=== PATIENT | male | born 1960 | race American Indian/Alaskan Native ===

== ENCOUNTER 2017-09-22 10:56 | Emergency (ER) | payer MEDICAID ==
[2017-09-22] MEDS ORDERED: ATIVAN ONE (11:04)
[2017-09-22] MEDS ORDERED: ATIVAN IV ONE ×2 (11:11→15:30)
[2017-09-22] MEDS ORDERED: NACL 0.9% 1000 ML 1,000 ML IV ONE ×2 (11:18→15:01)
[2017-09-22 11:54] LABS: Basophils % (Auto) 0.2 % (0.0-1.8); Eosinophils % (Auto) 0.5 % (0.0-4.3); Hematocrit 38.7 % (35.5-45.6); Hemoglobin 13.1 gm/dl (11.8-15.2); Lymphocytes # (Auto) 2.1 K/mm3 (1.2-5.4); Lymphocytes % (Auto) 32.9 % (13.4-35.0); Mean Corpuscular HGB Conc 34 % (32-34); Mean Corpuscular Hemoglobin 33 pg (28-32); Mean Corpuscular Volume 97 fl (84-94); Monocytes # (Auto) 0.5 K/mm3 (0.0-0.8); Monocytes % (Auto) 7.3 % (0.0-7.3); Platelet Count 147 K/mm3 (140-440); Red Cell Distribution Width 14.7 % (13.2-15.2)
[2017-09-22 12:00] LABS: Alanine Aminotransferase 17 units/L (7-56); Albumin 3.8 g/dL (3.9-5); BUN/Creatinine Ratio 14; Blood Urea Nitrogen 15 mg/dL (9-20); Hemolysis Index 8
[2017-09-22 13:13] LABS: Bacteria,Urine 1+ /HPF (Negative); Bilirubin,Urine NEG (Negative); Blood,Urine SM (Negative); Color,Urine Yellow (Yellow); Hyaline Casts,Urine 1 /LPF; Mucus,Urine FEW /HPF; RBC,Urine < 1.0 /HPF (0.0-6.0); Urobilinogen,Urine < 2.0 mg/dL (<2.0)
--- NOTE | 2017-09-22 13:48 | Emergency Department Report ---
HPI - General Chief Complaint: Seizure Time Seen by Provider: 09/22/17 11:18 - HPI HPI: The patient is a 57-year-old male with a history of seizure, brain cancer, and brain surgery 1 month ago, and who presents for evaluation of seizure. Per the patient's , the patient expressed a moderate in severity seizure one hour prior to arrival, lasting for seconds, self resolving. She also shares that he typically experiences 1-2 seizures per month despite compliance with Depakote antiseizure medication regimen. Per EMS on scene the patient was incontinent and postictal. The patient and his deny head injury, neck pain, neck stiffness, vision or hearing changes, smell or taste changes, paresthesias, facial drooping, slurred speech, urine or bowel incontinence or retention, or other focal neurological deficit. ED Past Medical Hx - Past Medical History Previous Medical History?: Yes Hx Hypertension: Yes Hx Diabetes: Yes Hx Seizures: Yes Additional medical history: brain tumor, cardiac stents - Social History Smoking Status: Unknown if ever smoked - Medications Home Medications: Home Medications Medication Instructions Recorded Confirmed Last Taken Type Carvedilol [Coreg] 6.25 mg PO BID 09/22/17 09/22/17 Unknown History Dexamethasone [Decadron] 2 mg PO BID 09/22/17 09/22/17 Unknown History Divalproex ER [DepaKOTE ER] 1,000 mg PO QHS 09/22/17 09/22/17 Unknown History Divalproex ER [DepaKOTE ER] 750 mg PO QAM 09/22/17 09/22/17 09/22/17 History Hydralazine HCl 50 mg PO Q8H PRN 09/22/17 09/22/17 Unknown History Spironolactone 25 mg PO DAILY 09/22/17 09/22/17 Unknown History Valsartan [Diovan] 320 mg PO QDAY 09/22/17 09/22/17 Unknown History traMADol [Ultram] 50 mg PO Q6HR PRN 09/22/17 09/22/17 Unknown History ED Review of Systems ROS: Stated complaint: SEIZURE Other details as noted in HPI Constitutional: denies: fever ENT: denies: throat or neck pain Respiratory: denies: cough, shortness of breath Cardiovascular: denies: chest pain Endocrine: denies unexplained weight loss or gain Gastrointestinal: denies: abdominal pain, nausea Genitourinary: denies: dysuria Musculoskeletal: denies: leg swelling Skin: denies: rash Neurological: reports seizure denies: headache Hematological/Lymphatic: denies: easy bleeding or easy bruising Psych: denies sadness or hopelessness Physical Exam - Physical Exam Vital Signs: Vital Signs 09/22/17 09/22/17 09/22/17 11:01 11:04 11:13 Temperature 97.3 F L Pulse Rate 114 H 112 H 85 Respiratory 13 15 Rate Blood Pressure Blood Pressure 143/86 [Left] O2 Sat by Pulse 96 98 Oximetry 09/22/17 09/22/17 11:30 12:01 Temperature Pulse Rate 85 80 Respiratory 23 20 Rate Blood Pressure 127/86 152/71 Blood Pressure [Left] O2 Sat by Pulse 96 97 Oximetry Physical Exam: General: well-nourished, well-developed, no acute distress Head: Normocephalic, atraumatic Eyes: normal sclera ENT: Mucous membranes are pale and dry Neck: trachea midline, neck supple, No neck stiffness, no cervical adenopathy Respiratory: Breath sounds equal bilaterally, no wheezing, rales, or rhonchi Cardio: S1 and S2 present, no murmurs, rubs, gallops, capillary refill is delayed Abdomen: Normoactive bowel sounds, soft abdomen, no rigidity, no guarding Musc: No pitting edema Skin: No rash Neuro: Patient drowsy, disoriented, unable to follow instructions, gave reflex intact, spontaneously moving all extremities, reflexes 2+ symmetric on DTR testing, Babinski downgoing Psych: Normal affect ED Course Vital Signs 09/22/17 09/22/17 09/22/17 11:01 11:04 11:13 Temperature 97.3 F L Pulse Rate 114 H 112 H 85 Respiratory 13 15 Rate Blood Pressure Blood Pressure 143/86 [Left] O2 Sat by Pulse 96 98 Oximetry 09/22/17 09/22/17 11:30 12:01 Temperature Pulse Rate 85 80 Respiratory 23 20 Rate Blood Pressure 127/86 152/71 Blood Pressure [Left] O2 Sat by Pulse 96 97 Oximetry ED Medical Decision Making - Lab Data Result diagrams: 09/22/17 11:28 09/22/17 11:28 - Medical Decision Making The patient was seen and examined by myself. The patient is placed on a metal finish inspector and continuous pulse ox. On initial evaluation, the patient was found to be in no distress. Evaluation orders were placed. Patient given Ativan and placed in restraints for his safety as he is post ictal and unable to follow instructions. Lab results were grossly unrevealing including normal WBC, electrolytes, renal function, and urinalysis. CT scan of the head revealed postsurgical changes, and otherwise was negative for hemorrhage, CVA, mass effect, or other acute emergent disease process. The patient was reevaluated multiple times and found to remain with altered mental status and inability to follow instructions despite 7 hours of observation. The on-call neuro agricultural lender Dr. Garcia at [facility] was contacted. He agrees to accept the patient for transfer to the [facility] neuro ICU. Critical care attestation.: If time is entered above; I have spent that time in minutes in the direct care of this critically ill patient, excluding procedure time. ED Disposition Clinical Impression: Seizure disorder, Hypertensive urgency Altered mental status, unspecified Qualifiers: Altered mental status type: somnolence Qualified Code(s): R40.0 - Somnolence Disposition: DC/TX-70 ANOTHER TYPE HLTHCARE Is pt being admited?: No Does the pt Need Aspirin: No Condition: Stable Referrals: JENELLE BETTENCOURT [Other] - 3-5 Days Time of Disposition: 13:53
--- NOTE | 2017-09-22 14:21 | Cat Scan Report ---
FINAL REPORT EXAM: CT HEAD/BRAIN WO CON HISTORY: seizure hx seizures brain tumor surgery 07/2017 TECHNIQUE: Noncontrast axial CT images of the brain. PRIORS: None. FINDINGS: Postsurgical change of left occipital craniotomy, with some encephalomalacic change in the subjacent parenchyma, soft tissue edema and possible mild cystic change in the overlying scalp. No parenchymal mass, hemorrhage, midline shift or hydrocephalus. No evidence of acute cortical infarct. No abnormal extra-axial fluid or air collections. Remainder of osseous calvarium grossly intact. IMPRESSION: 1. No acute intracranial findings. 2. Postsurgical changes.
[2017-09-22] MEDS ORDERED: SUBLIMAZE IV ONE (15:30)
[2017-09-22] MEDS ORDERED: APRESOLINE IV ONE (17:39)
[2017-09-22] MEDS ORDERED: TYLENOL PR ONE ×2 (20:06→20:10)
[2017-09-22 20:49] VITALS: BP 153/91
--- NOTE | 2017-09-22 21:30 | XRay Report ---
FINAL REPORT PROCEDURE: Chest. TECHNIQUE: Portable AP view. HISTORY: Cough. COMPARISON: No prior studies are available for comparison. FINDINGS: The patient is rotated to the right. The heart size is normal. The left lung is clear. There is poorly defined opacity at the right lung base. There may be elevation of the right hemidiaphragm. I cannot exclude a right pleural effusion. Further evaluation with PA and lateral radiographs done in the Radiology department is recommended. The soft tissues are unremarkable. The regional skeleton appears intact. IMPRESSION: Limited study. Abnormal opacity at the right lung base.
== END 2017-09-22 20:48 | disposition other institution (70) ==
LOC: ED 10:56
DX: G40.909 Epilepsy, unspecified, not intractable, without status epilepticus (principal); I16.0 Hypertensive urgency; R41.82 Altered mental status, unspecified; I10 Essential (primary) hypertension; E11.9 Type 2 diabetes mellitus without complications
CPT/HCPCS: 36415; 70450; 71045; 80053; 80164; 81001; 82550; 83735; 83880; 85025; 93005; 93010; 96361; 96374; 96375; 96376; 99285; G0480; J0360; J2060; J3010; J7030; 80320